=== PATIENT | female | born 1995 | race Hispanic/Latino ===

== ENCOUNTER 2024-09-02 08:55 | Emergency (ER) | payer SELFPAY ==
[~2024-09-02] VITALS: Ht 167.6 cm; Wt 109.8 kg
[2024-09-02 09:35] LABS: BASOPHILS # (AUTO) 0.1 (0.0-0.1); BASOPHILS % 1.1 % (0.0-1.0); EOSINOPHILS # (AUTO) 0.4 (0.0-0.4); EOSINOPHILS % 4.4 % (0.0-6.0); HEMATOCRIT 44.6 % (34.2-44.1); HEMOGLOBIN 13.2 g/dL (12.0-16.0); LYMPHOCYTES # (AUTO) 3.2 (1.0-3.2); LYMPHOCYTES % 38.8 % (18.0-39.1); MEAN CORPUSCULAR HEMOGLOBIN 27.2 pg (28-32); MEAN CORPUSCULAR HGB CONC 29.6 g/dL (31-35); MEAN CORPUSCULAR VOLUME 91.8 fL (81-99); MONOCYTES # (AUTO) 0.4 (0.2-0.8); MONOCYTES % 5.1 % (4.4-11.3); NEUTROPHILS # (AUTO) 4.2 (2.1-6.9); NEUTROPHILS % 50.4 % (38.7-80.0); PLATELET COUNT 371 x10e3/uL (140-360); RED BLOOD COUNT 4.86 x10e6/uL (3.6-5.1); RED CELL DISTRIBUTION WIDTH 12.8 % (11.7-14.4); WHITE BLOOD COUNT 8.23 x10e3/uL (4.8-10.8)
[2024-09-02 09:56] LABS: BILIRUBIN,URINE NEGATIVE (NEGATIVE); CLARITY,URINE CLEAR (CLEAR); COLOR,URINE YELLOW (YELLOW); GLUCOSE, URINE NEGATIVE (NEGATIVE); KETONES,URINE NEGATIVE (NEGATIVE); LEUKOCYTE ESTERASE ,URINE NEGATIVE (NEGATIVE); NITRITE,URINE NEGATIVE (NEGATIVE); PROTEIN,URINE DIPSTICK NEGATIVE (NEGATIVE); URINE UROBILINOGEN 0.2 mg/dL (0.2 - 1)
[2024-09-02] MEDS: Morphine 4mg INJECTION 4 MG/ML INJ IV STA (09:58)
[2024-09-02] MEDS: ONDANSETRON HCL INJ 2MG/ML 2ML 2 MG/ML VIAL IV STA (09:58)
[2024-09-02] MEDS: SODIUM CHLORIDE 0.9% 1000ML 1,000 ML IV STA (09:59)
[2024-09-02 10:01] LABS: ALANINE AMINOTRANSFERASE 40 IU/L (0-55); ALBUMIN 4.3 g/dL (3.5-5.0); ALBUMIN/GLOBULIN RATIO 1.1 (0.8-2.0); ALKALINE PHOSPHATASE 88 IU/L (40-150); ANION GAP 15.8 mmol/L (8-16); BILIRUBIN,TOTAL 0.8 mg/dL (0.2-1.2); BLOOD UREA NITROGEN 18 mg/dL (7-26); BUN/CREATININE RATIO 25 (6-25); CALCIUM 9.8 mg/dL (8.4-10.2); CARBON DIOXIDE 24 mmol/L (22-29); CHLORIDE 103 mmol/L (98-107); CREATINE KINASE 132 IU/L (29-168); CREATININE, SERUM 0.73 mg/dL (0.57-1.11); EST GLOMERULAR FILTRATION RATE 116 ML/MIN (>=60); GLUCOSE 95 mg/dL (74-118); LIPASE 29 U/L (8-78); MAGNESIUM 2.3 MG/DL (1.3-2.1); POTASSIUM 3.8 mmol/L (3.5-5.1); SODIUM 139 mmol/L (136-145); TOTAL PROTEIN 8.2 g/dL (6.5-8.1)
[2024-09-02 10:03] LABS: INR 0.94; PROTHROMBIN TIME 13.1 seconds (11.9-14.5)
[2024-09-02 10:04] LABS: PARTIAL THROMBOPLASTIN TIME 37.4 seconds (23.8-35.5)
[2024-09-02 10:07] LABS: TROPONIN I < 0.001 ng/mL (0-0.300)
[2024-09-02 10:40] LABS: BACTERIA,URINE MODERATE /HPF; EPITHELIAL CELLS,URINE FEW /LPF; PH,URINE 6 (5 - 7); RBC,URINE 0-5 /HPF (0-5); WBC,URINE (MAN) 0-5 /HPF (0-5)
[2024-09-02] MEDS ORDERED: DICYCLOMINE HCL20 MG PO (13:10)
[2024-09-02] MEDS ORDERED: ONDANSETRON ODT4 MG PO (13:10)
[2024-09-02 13:17] VITALS: PULSE 68; RESP 17; TEMP 98.4; O2SAT 99
== END 2024-09-02 13:22 | disposition home or self-care (01) ==
LOC: ER 09:11
DX: Z32.01 Encounter for pregnancy test, result positive (principal); K80.50 Calculus of bile duct without cholangitis or cholecystitis without obstruction; R10.11 Right upper quadrant pain; R11.0 Nausea
CPT/HCPCS: 36415; 76705; 80053; 81001; 82550; 83690; 83735; 84484; 84702; 85025; 85610; 85730; 99284; J2270; J2405; J2470; J7030